=== PATIENT | male | born 1955 | race Caucasian/White ===

== ENCOUNTER 2020-12-21 08:34 | Emergency (ER) | payer MEDICARE ==
[~2020-12-21] VITALS: Ht 182.9 cm; Wt 90.7 kg
[2020-12-21] MEDS ORDERED: XANAX 0.5 MG0.5 M1 (08:48)
[2020-12-21] MEDS ORDERED: HYDROCODON-ACE1 EAC7 PO (08:48)
[2020-12-21 09:01] LABS: ABSOLUTE BASOPHILS 0.1 thou/uL (0.0-0.2); ABSOLUTE EOSINOPHILS 0.2 thou/uL (0.0-0.7); ABSOLUTE LYMPHOCYTES 2.7 thou/uL (0.8-5.3); ABSOLUTE MONOCYTES 0.7 thou/uL (0.0-1.2); ABSOLUTE NEUTROPHILS 3.8 thou/uL (1.6-8.1); BASOPHILS 0.9 %; EOSINOPHILS 2.4 %; HEMATOCRIT 44.1 % (42.0-52.0); HEMOGLOBIN 14.9 gm/dL (14.0-18.0); LYMPHOCYTES 35.9 %; MCH 29.4 pg (26.0-34.0); MCHC 33.9 g/dL (28.0-37.0); MCV 86.6 fL (80.0-100.0); MONOCYTES 9.3 %; MPV 8.6 fl. (7.2-11.1); NUCLEATED RBCS 0 /100WBC; PLATELET COUNT* 219 thou/uL (150-400); POLYS 51.5 %; RBC 5.09 mil/uL (4.50-6.00); RDW-CV 13.4 % (10.5-14.5); WBC 7.5 thou/uL (4.0-11.0)
[2020-12-21 09:02] LABS: ANION GAP 6 mmol/L (7-16); BUN 19 mg/dL (7-18); CALCIUM 8.7 mg/dL (8.5-10.1); CHLORIDE 106 mmol/L (98-107); CO2 27 mmol/L (21-32); GLUCOSE 111 mg/dL (70-99); POTASSIUM 3.8 mmol/L (3.5-5.1); SODIUM 139 mmol/L (136-145)
[2020-12-21 09:11] LABS: APTT 28.8 Seconds (25.0-31.3); PROTIME 10.4 Seconds (9.20-11.50)
[2020-12-21 09:15] LABS: ALBUMIN 3.7 g/dL (3.4-5.0); ALKALINE PHOSPHATASE 86 U/L (46-116); CK-MB MASS < 0.5 ng/mL (<0.5-3.6); LIPASE 142 U/L (73-393); MAGNESIUM 2.1 mg/dL (1.8-2.4); NT-PRO BRAIN NAT PEPTIDE 12 pg/mL (<300); SGOT 18 U/L (15-37); SGPT 35 U/L (30-65); TOTAL BILIRUBIN 0.3 mg/dL (<0.1-1.0); TOTAL PROTEIN 7.4 g/dL (6.4-8.2)
[2020-12-21 11:12] VITALS: BP 122/70
--- NOTE | 2020-12-21 12:40 | EKG ---
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
== END 2020-12-21 11:12 | disposition home or self-care (01) ==
LOC: M.ERS 08:34
PROVIDERS: Family Medicine
DX: R07.89 Other chest pain (principal)